=== PATIENT | female | born 2000 | race African-American/Black ===

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

== ENCOUNTER 2019-08-03 00:04 | Inpatient (IN) ==
[2019-08-03] MEDS ORDERED: BUTORPHANOL 2 MG/ML VIAL IV PRN (00:31)
[2019-08-03] MEDS ORDERED: ONDANSETRON 4 MG/2 ML VIAL IV PRN (00:31)
[2019-08-03] MEDS: LACTATED RINGERS 1,000 ML IV SCH ×2 (01:05→09:24)
[2019-08-03 01:12] LABS: Albumin 2.5 G/DL (3.4-5.0); Bilirubin,Total 0.4 MG/DL (0.2-1.0); Calcium 8.4 MG/DL (8.5-10.1); Osmolality,Calculated 263.2 MOS/KG (273-304)
[2019-08-03 01:20] LABS: Basophils # 0.1 10*3/uL (0.0-0.2); Basophils % 0.7 % (0.0-0.8); Eosinophils # 0.1 10*3/uL (0.0-0.87); Eosinophils % 1.8 % (0.00-10.9); Hematocrit 33.3 VOL% (35.7-47.0); Hemoglobin 10.4 GM/DL (12.0-16.0); Immature Granulocytes % 6.9 %; Lymphocytes # 1.5 10*3/uL (1.4-4.0); Lymphocytes % 21.1 % (21.3-54.2); Mean Corpuscular HGB Conc 31.2 GM/DL (32-36); Mean Corpuscular Volume 84.5 FL (87-102); Mean Platelet Volume 12.5 FL (9.6-12.0); Monocytes % 14.4 % (1.7-12.7); Neutrophils % 55.1 % (38.7-73.9); Platelet Count 166 T/CUMM (130-400); Red Blood Count 3.94 MC/CUMM (3.8-5.5); Red Cell Distribution Width 16.9 % (9.3-17.3); White Blood Count 7.2 T/CUMM (4-12)
[2019-08-03] MEDS ORDERED: AMPICILLIN INJ 2,000 MG in SODIUM CHLORIDE 0.9% 100 ML IV ONE (01:30)
[2019-08-03] MEDS: AMPICILLIN INJ 1,000 MG in SODIUM CHLORIDE 0.9% 100 ML IV SCH ×2 (05:47→09:25)
[2019-08-03] MEDS ORDERED: diphenhydrAMINE 50 MG/1 ML VIAL IV PRN ×2 (09:32)
[2019-08-03] MEDS ORDERED: LACTATED RINGERS 1,000 ML IV ONE (09:32)
[2019-08-03] MEDS ORDERED: PROMETHAZINE 25 MG/1 ML VIAL IM ONE (09:32)
[2019-08-03] MEDS ORDERED: hydrOXYzine HCL 25 MG/1 ML VIAL IM PRN (09:32)
[2019-08-03] MEDS ORDERED: FAMOTIDINE 20 MG/2 ML VIAL IV ONE (09:32)
[2019-08-03] MEDS ORDERED: NALOXONE 0.4 MG/ML VIAL IV PRN (09:32)
[2019-08-03] MEDS ORDERED: ePHEDrine 50 MG/ML AMP IV PRN (09:32)
[2019-08-03] MEDS ORDERED: CITRIC ACID/SODIUM CITRATE 30 ML UDCUP PO ONE (09:32)
[2019-08-03] MEDS: OXYTOCIN/LR 20 UNIT/1,000 ML BAG IV SCH ×2 (09:44→16:23)
[2019-08-03] MEDS ORDERED: fentaNYL 2 MCG/ROPIV 0.2% EPID 100 ML EPIDURAL SCH (10:00)
[2019-08-03 12:16] LABS: Apearance,Urine CLEAR (Clear); Bilirubin,Urine Negative (Negative); Blood, Urine Negative (Negative); Glucose,Urine (UA) Negative (Negative); Ketones,Urine 20 mg/dL (Negative); Mucus,Urine Few /LPF (Occasional); Nitrite,Urine Negative (Negative); Protein,Urine Negative; RBC,Urine <1 /HPF (0-4); Squamous Epithelial Cell,Urine Occasional /HPF (0-10); Urine Color Yellow (Yellow); WBC,Urine <1 /HPF (0-6)
[2019-08-03] MEDS ORDERED: CARBOPROST TROMETHAMINE 250 MCG/ML AMP IM ONE (12:57)
[2019-08-03] MEDS ORDERED: miSOPROStoL 200 MCG TABLET ONE (12:57)
[2019-08-03] MEDS ORDERED: TRANEXAMIC ACID 1,000 MG/10 ML VIAL ONE (12:57)
[2019-08-03] MEDS ORDERED: METHYLERGONOVINE 0.2 MG/1 ML AMP ONE (12:57)
[2019-08-04] MEDS ORDERED: WITCH HAZEL PADS 100/JAR TOP PRN (02:39)
[2019-08-04 05:05] LABS: Basophils % 0.3 % (0.0-0.8); Eosinophils # 0.1 10*3/uL (0.0-0.87); Eosinophils % 0.9 % (0.00-10.9); Hematocrit 28.6 VOL% (35.7-47.0); Hemoglobin 9.1 GM/DL (12.0-16.0); Immature Granulocytes % 2.2 %; Lymphocytes # 1.6 10*3/uL (1.4-4.0); Lymphocytes % 17.5 % (21.3-54.2); Mean Corpuscular HGB Conc 31.8 GM/DL (32-36); Mean Corpuscular Volume 83.9 FL (87-102); Mean Platelet Volume 11.8 FL (9.6-12.0); Monocytes % 9.8 % (1.7-12.7); Neutrophils % 69.3 % (38.7-73.9); Platelet Count 150 T/CUMM (130-400); Red Blood Count 3.41 MC/CUMM (3.8-5.5); Red Cell Distribution Width 16.7 % (9.3-17.3); White Blood Count 9.1 T/CUMM (4-12)
[2019-08-04] MEDS: DOCUSATE SODIUM 100 MG CAPSULE PO SCH ×2 (08:54→21:10)
[2019-08-04] MEDS: IBUPROFEN 800 MG TABLET PO PRN ×2 (12:57→21:10)
[2019-08-04] MEDS ORDERED: BENZOCAINE 20%/MENTHOL 0.5% SPRAY 56 GM CAN TOP PRN (20:45)
[2019-08-04] MEDS ORDERED: HYDROCORTISONE 2.5% RECTAL CREAM 30 GM TUBE TOP PRN (20:45)
[2019-08-05] MEDS: DOCUSATE SODIUM 100 MG CAPSULE PO SCH (10:39)
[2019-08-05] MEDS: IBUPROFEN 800 MG TABLET PO PRN (10:40)
[2019-08-05 16:05] VITALS: BP 103/57
== END 2019-08-05 17:40 | disposition home or self-care (01) | DRG 560 ==
LOC: N.LDOUT 00:04 → N.LD 00:05 → N.OB 16:28
PROVIDERS: ADMIT Obstetrics & Gynecology; ATTEND Obstetrics & Gynecology